=== PATIENT | female | born 1980 | race Caucasian/White ===

== ENCOUNTER 2024-02-12 00:58 | Emergency (ER) | payer SELFPAY ==
[2024-02-12 01:13] VITALS: BP 141/100
[2024-02-12 02:41] LABS: % Basophils 0.2 % (0-2); % Eosinophils 0.2 % (0-6); % Immature Granulocytes 0.1 % (0-0.5); % Lymphocytes 32.2 % (20.5-51.1); % Monocytes 8.2 % (1.7-9.3); % Neutrophils 59.1 % (42.2-75.2); Absolute Monocytes 0.8 10^3/uL (0.1-0.6); Absolute Neutrophils 5.5 10^3/uL (1.4-6.5); Hematocrit 34.2 % (37.0-47.0); Hemoglobin 11.9 g/dL (12.0-16.0); Mean Corp Hgb Conc. 34.8 g/dL (33.0-37.0); Mean Corpuscular Hgb 29.4 pg (27.0-31.0); Mean Corpuscular Volume 84.4 fL (81.0-99.0); Mean Platelet Volume 9.9 fL (7.4-10.4); Nucleated Red Blood Cells % 0 %; Platelet Count 271 10^3/uL (130-400); Red Blood Cell Count 4.05 10^6/uL (4.20-5.40); Red Cell Dist. Width 12.9 % (11.5-14.5); White Blood Cell Count 9.3 10^3/uL (4.8-10.8)
[2024-02-12 02:56] LABS: ALT (SGPT) 20 U/L (0-35); AST (SGOT) 37 U/L (14-36); Albumin 3.8 g/dl (3.5-5.0); Alkaline Phosphatase 88 U/L (38-126); Blood Urea Nitrogen 17 mg/dl (7-17); Calcium 8.8 mg/dl (8.4-10.2); Carbon Dioxide 25 mmol/L (22-30); Chloride 100 mmol/L (98-107); Glucose 119 mg/dl (70-99); Lipase 46 U/L (23-300); Sodium 135 mmol/L (135-145); Total Bilirubin 0.7 mg/dl (0.2-1.3); Total Protein 7.1 g/dl (6.3-8.2); eGFR > 60.00
--- NOTE | 2024-02-12 03:57 | ED.GENMED ---
History of Present Illness
<BROCK Cortez - Last Filed: 02/12/24 05:51>
General
Chief Complaint: Abdominal Pain
Source: patient
Exam Limitations: none
Time Seen by Provider: 02/12/24 04:04
Nursing documentation reviewed up to this point in time: agreed with
Travel History
Have you had any contact with someone who has COVID-19?: No
Do you have any symptoms of coronavirus? Fever > 100 degrees, chills, cough, shortness of breath, sore throat, loss of taste or smell, muscle aches, or headache?: No
History of Present Illness
History of Present Illness:
patient is a 43 y/o female with PMH of HIV, PUD and pernicious anemia presenting with abdominal pain x 1 month. Patient admits the pain is localized to the RUQ. Patient states that the pain does not radiate but is better when she eats food. Patient
admits the pain is similar to when she had a previous ulcer in her stomach. Patient admits to a 35 pound unintentional weight loss in 3 months. Patient admits to nausea and multiple bouts of vomiting that was non bilious. patient denies D/C, blood
in vomit or stool, anorexia, or bloating. Patient denies smoking or alcohol intake. patient denies any changes to medication.
Past History
<BROCK Cortez - Last Filed: 02/12/24 05:51>
Past History
ED Past Medical History: Other (HIV, ulcer, pernicious anemia )
ED Past Surgical History: Tonsilectomy and Other (tummy tuck)
Review of Systems
<BROCK Cortez - Last Filed: 02/12/24 05:51>
Review of Systems
All Other Systems: Not applicable
Constitutional: Reports no symptoms
EENT: Reports no symptoms
Respiratory: Reports no symptoms
Cardiac: Reports no symptoms
ABD/GI: Reports abdominal pain, nausea, vomiting and pain
: Reports no symptoms
Musculoskeletal: Reports no symptoms
Skin: Reports no symptoms
Neurological: Reports no symptoms
Endocrine: Reports no symptoms
Hematologic/Lymphatic: Reports no symptoms
Psychiatric: Reports no symptoms
Phy Exam
<ST DanaVA - Last Filed: 02/12/24 05:51>
General Physical Exam
General Presentation: well appearing and no apparent distress
General Skin: warm and dry
General Habitus: normal
General Mental: alert
General Hydration: appears well hydrated
ENT Exam
ENT Exam: EOMI, pharynx normal, neck supple and normocephalic
Eye Exam
Eye Exam: PERRL, cornea clear and conjunctiva normal
Cardiovascular Exam
Cardiovascular Exam: regular rate/rhythm, no edema, no murmur and normal peripheral pulses
Pulmonary Exam
Pulmonary Exam: lungs clear, no respiratory distress, no rales, no crackles, no rhonchi, no stridor, no wheezing and no cough
Gastrointestinal Exam
Gastrointestinal Exam: normal bowel sounds, no masses and tender (RUQ and epigastric )
Palpation: right upper quadrant: Moderate tenderness
Neurological Exam
Neurological Exam: alert, oriented x3, no motor deficits and speech normal
Musculoskeletal Exam
Musculoskeletal Exam: full ROM and no edema
Skin Exam
Skin Exam: normal color, warm/dry, no rash and no petechia
Psychiatric Exam
Psychiatric Exam: normal mood/affect
Course
<ST DanaVA - Last Filed: 02/12/24 05:51>
Orders/Labs/Results
Orders:
Orders
02/12/24 02:29
Complete Blood Count/With Diff Urgent
Comprehensive Metabolic Panel Urgent
HCG, Serum Qualitative Screen Urgent
Lipase Urgent
02/12/24 04:25
CT Abd/pelvis W Iv Cont Urgent
Comment:
Reason For Exam: gastric bypass, abd pain
02/12/24 04:26
Add On- LAB Urgent
Tests Added?: serum hcg
Abnormal Lab Results
02/12/24
02:29
RBC 4.05 L 10^6/uL
(4.20-5.40)
Hgb 11.9 L g/dL
(12.0-16.0)
Hct 34.2 L %
(37.0-47.0)
Absolute Monos (auto) 0.8 H 10^3/uL
(0.1-0.6)
Potassium 3.0 L mmol/L
(3.5-5.1)
Glucose 119 H mg/dl
(70-99)
AST 37 H U/L
(14-36)
02/12/24 02:29
02/12/24 02:29
Vital Signs
Initial and Last Documented VS:
Initial Vital Signs
Temp Pulse Resp BP Pulse Ox
98.5 F 107 18 141/100 99
02/12/24 01:13 02/12/24 01:13 02/12/24 01:13 02/12/24 01:13 02/12/24 01:13
Last Documented Vital Signs
Temp Pulse Resp BP Pulse Ox
98.5 F 107 18 141/100 99
02/12/24 01:13 02/12/24 01:13 02/12/24 01:13 02/12/24 01:13 02/12/24 01:13
<Gino Ceron, DO - Last Filed: 02/12/24 06:25>
Orders/Labs/Results
Orders:
Orders
02/12/24 02:29
Complete Blood Count/With Diff Urgent
Comprehensive Metabolic Panel Urgent
HCG, Serum Qualitative Screen Urgent
Lipase Urgent
02/12/24 04:25
CT Abd/pelvis W Iv Cont Urgent
Comment:
Reason For Exam: gastric bypass, abd pain
02/12/24 04:26
Add On- LAB Urgent
Tests Added?: serum hcg
Abnormal Lab Results
02/12/24
02:29
RBC 4.05 L 10^6/uL
(4.20-5.40)
Hgb 11.9 L g/dL
(12.0-16.0)
Hct 34.2 L %
(37.0-47.0)
Absolute Monos (auto) 0.8 H 10^3/uL
(0.1-0.6)
Potassium 3.0 L mmol/L
(3.5-5.1)
Glucose 119 H mg/dl
(70-99)
AST 37 H U/L
(14-36)
02/12/24 02:29
02/12/24 02:29
Vital Signs
Initial and Last Documented VS:
Initial Vital Signs
Temp Pulse Resp BP Pulse Ox
98.5 F 107 18 141/100 99
02/12/24 01:13 02/12/24 01:13 02/12/24 01:13 02/12/24 01:13 02/12/24 01:13
Last Documented Vital Signs
Temp Pulse Resp BP Pulse Ox
98.5 F 107 18 141/100 99
02/12/24 01:13 02/12/24 01:13 02/12/24 01:13 02/12/24 01:13 02/12/24 01:13
<BROCK Cortez - Last Filed: 02/12/24 05:51>
MDM/Problems Addressed
Differential Diagnosis Includes:
PUD
gastric cancer
GERD
hernia
MDM/Problems Addressed:
abdominal pain x 1 month
<BROCK Cortez - Last Filed: 02/12/24 05:51>
*Critical Care Note
Total Time (30-74mins, 75-104mins- exclusive of procedures): Not Applicable
<BROCK Cortez - Last Filed: 02/12/24 05:51>
Update Note
Update Note:
patient admits to continuous pain; IV has been placed and patient will be getting CT
<Gino Ceron DO - Last Filed: 02/12/24 06:25>
Update Note
Update Note:
patient admits to continuous pain; IV has been placed and patient will be getting CT
CT abdomen and pelvis with intravenous contrast
IMPRESSION:
Appendix is normal. No bowel obstruction or diverticulitis. Status post Raphael-en-Y gastric bypass.
Status post cholecystectomy. No pancreatitis. No obstructing renal stone. Abdominal aorta is of normal caliber.
Finalized at 6:21 AM EST
Reece Balderas M.D.
This report has been electronically signed and verified by the Radiologist whose name is printed above.
ED Attending Note
<BROCK Cortez - Last Filed: 02/12/24 05:51>
-
Portions of this chart may have been created with voice recognition software.� Occasional wrong word or��sound alike� substitutions may have occurred due to the inherent limitations of voice recognition software.
<Gino Ceron DO - Last Filed: 02/12/24 06:25>
ED Attending Note
Patient seen and examined by attending physician: Yes
I performed the substantive portion of visit, reviewed & personally made and approve the management plan that is documented in note by myself or TEODORO.: Yes
ED Attending Note:
43-year-old female that presents with abdominal pain that is been present for the last 2 months. Patient states that the pain has not changed and it has always localized to the right upper quadrant. She reports that the pain is improved when she
eats food. She has had stomach ulcer in the past and states that this is similar in pain. Patient does report some weight loss approximately 10 pounds per month over the last 3 months. She does report this is not intentional. Patient denies
fever, chills but does report some vomiting. She reports no bile or blood in the vomitus. Patient was seen in conjunction with the PA student. I have reviewed and agree with the history and treatment plan presented. On my independent physical
exam, patient is awake, alert, and oriented x3, minimal to no acute distress. Heart is regular rate and rhythm. Lungs are clear to auscultation bilaterally. Abdomen is soft with diffuse minimal tenderness to palpation. Skin is warm and dry with
multiple scars on the upper extremities. Patient moves all 4 extremities. Flat affect.
Discharge Plan
Departure
Patient Disposition: Home (Routine Discharge)
Date of Disposition: 02/12/24
Time of Disposition: 06:23
Patient with high blood pressure during this ER visit?: Yes
Condition: Good
Discharge Problem:
Abdominal pain
Instructions: Abdominal Pain, BLOOD PRESSURE
Prescriptions:
New
pantoprazole [Protonix] 40 mg tablet,delayed release (DR/EC)
40 mg PO DAILY Qty: 14 0RF
No Action
buprenorphine-naloxone [Suboxone] 8-2 mg Film
1 film BUCCAL DAILY
gabapentin 600 mg Tablet
600 mg PO TID
duloxetine [Cymbalta] 60 mg Capsule,Delayed Release(Dr/Ec)
60 mg PO DAILY
ondansetron HCl [Zofran] 8 mg Tablet
8 mg PO Q12H PRN (Reason: nausea)
Nurtec ODT 75 mg Tablet,Disintegrating
75 mg PO ONCE PRN (Reason: migraines)
Aimovig Autoinjector 140 mg/mL Auto-Injector
140 mg SC QMONTH
Referrals:
[facility] [Outside]
[facility] [Outside]
NONE,* [Family Provider] -
Activity Restrictions/Additional Instructions:
It was a pleasure meeting you and taking part in your care. We hope for your continued healing and wellness.
Please read discharge instructions in their entirety. However, they are for general education and may not describe your exact diagnosis at discharge. Information on your ER visit and medical conditions were discussed with you along with appropriate
follow up information...
If indicated, please take your medications as instructed and indicated on discharge paperwork.
Please schedule a follow up appointment as directed. Call to schedule an appointment
Please return to the emergency department with ANY change in, persisting, or worsening of symptoms. If any of your symptoms do not improve, or persist, or become more severe within 6-12 hours, please return to the emergency department for further
care.
Please return to the emergency department if you develop a headache, neck pain/stiffness, fever greater than 100.4F, chest pain, shortness of breath, persistent nausea, vomiting, slurred speech, difficulty walking, numbness/tingling, weakness, signs
of infection or any other symptoms that are worrisome to you.
If you have any questions or concerns please do not hesitate to call the Hospital at or E-mail me directly at [email or web address]
Interventions
Interventions:
*Risk Screen - Suicide Last Done: 02/12/24 02:34
*General Assessment Last Done: 02/12/24 02:34
*Neglect/Abuse Screening Last Done: 02/12/24 02:34
*ED COVID-19 Vaccine History Last Done: 02/12/24 02:34
EN-Hxalze-Qqukyrjlsg Assessment Last Done: 02/12/24 02:37
[2024-02-12 04:58] LABS: HCG, Serum Qualitative Screen Negative
[2024-02-12 06:24] VITALS: BP 128/82
== END 2024-02-12 06:54 | disposition home or self-care (01) ==
LOC: EMR 00:58
PROVIDERS: EMERGENCY PHYSICIAN Student in an Organized Health Care Education/Training Program
DX: R10.9 Unspecified abdominal pain (principal); D51.0 Vitamin B12 deficiency anemia due to intrinsic factor deficiency; C16.9 Malignant neoplasm of stomach, unspecified; Z21 Asymptomatic human immunodeficiency virus [HIV] infection status; Z87.11 Personal history of peptic ulcer disease; K21.9 Gastro-esophageal reflux disease without esophagitis; Z90.49 Acquired absence of other specified parts of digestive tract; Z98.84 Bariatric surgery status
CPT/HCPCS: 99284; 74177; 80053; 83690; 84703; 85025; Q9967